=== PATIENT | male | born 1980 | race Caucasian/White ===

== ENCOUNTER 2018-02-07 12:52 | Emergency (ER) | END 2018-02-07 17:55 | disposition home or self-care (01) ==

== ENCOUNTER 2018-02-07 21:14 | Emergency (ER) | END 2018-02-08 05:37 | disposition home or self-care (01) ==

== ENCOUNTER 2018-06-13 18:12 | Emergency (ER) | payer MEDICARE, OTHER ==
[~2018-06-13] VITALS: Wt 73.0 kg
[~2018-06-13 18:12] MED LIST: HYDR-4011 PO; IBUP-1542 PO
[2018-06-13 19:16] VITALS: BP 126/81; PULSE 104; RESP 28
[2018-06-13] MEDS ORDERED: TRIMETHOPRIM/SULFAMETHOX (DS) TAB PO ONE (19:30)
[2018-06-13] MEDS ORDERED: CEPHALEXIN 500 MG CAP PO ONE (19:30)
[2018-06-13] MEDS ORDERED: IBUPROFEN 800 MG TAB PO ONE (19:30)
[2018-06-13] MEDS ORDERED: IBUP-1542 PO (19:32)
[2018-06-13] MEDS ORDERED: SULF1TAB31 PO (19:32)
[2018-06-13] MEDS ORDERED: CEPH-443 PO (19:32)
[2018-06-13] MEDS ORDERED: PHEN100C PO (19:36)
[2018-06-13] MEDS ORDERED: IBUP-1545 PO (19:36)
--- NOTE | 2018-06-13 20:07 | ERD ---
ER Documentation Chief Complaint Chief Complaint ABSCESS TO TESTICLE X3DAYS W/ DISCHARGE HPI Patient is a 37-year-old male with no medical problems who presents with "a boil to my scrotum". He has had no treatment as of yet. He said that it started 2 days ago. He said that it popped today and pus came out when he was walking. Upon review of old medical records this is the patient's 11th visit to the ER since 2007. His primary doctor is Dr. Arriaga. ROS All systems reviewed and are negative except as per history of present illness. Medications Home Meds Active Scripts Sulfamethoxazole/Trimethoprim* (Bactrim Ds* Tablet) 1 Each Tablet, 1 TAB PO BID, #14 TAB Prov:MAIKEL CERVANTES MD 06/13/18 Cephalexin* (Keflex*) 500 Mg Capsule, 500 MG PO QID for 7 Days, CAP Prov:MAIKEL CERVANTES MD 06/13/18 Ibuprofen* (Motrin*) 600 Mg Tab, 600 MG PO Q6H PRN for PAIN AND OR ELEVATED TEMP, #30 TAB Prov:MAIKEL CERVANTES MD 06/13/18 Reported Medications Phenytoin* Sodium Extended (Dilantin*) 100 Mg Capsule, 100 MG PO TID, CAP 06/13/18 Ibuprofen* (Ibuprofen*) 800 Mg Tab, 800 MG PO BID PRN for PAIN, TAB 06/13/18 Discontinued Scripts Hydrocodone/Acetaminophen ([place] 5-325 Tablet) 1 Each Tablet, 1 TAB PO Q6H PRN for SEVERE PAIN LEVEL 7-10, #20 TAB Prov:SPARKLE CEJA NP 02/21/16 Ibuprofen* (Motrin*) 600 Mg Tab, 600 MG PO Q6H PRN for PAIN AND OR ELEVATED TEMP, #30 TAB Prov:SPARKLE CEJA NP 02/21/16 Allergies Allergies: Coded Allergies: No Known Allergies (Unverified Allergy, Mild, 06/13/18) PMhx/Soc History of Surgery: Yes (L ANKLE, BRAIN) Anesthesia Reaction: No Hx Neurological Disorder: Yes (SEIZURES ) Hx Respiratory Disorders: No Hx Cardiac Disorders: No Hx Psychiatric Problems: No Hx Miscellaneous Medical Probl: No Hx Alcohol Use: Yes (YESTERDAY) Hx Substance Use: Yes (METH AND 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 Neck: Full range of motion. No meningismus. Resp: Clear to auscultation bilaterally Cardio: Regular rate and rhythm, no murmurs Abd: Soft, non tender, non distended. Normal bowel sounds Skin: 1 x 1 cm area in the base of the scrotum which was open and draining and was likely recently popped abscess Back: No midline or flank tenderness Ext: No cyanosis, or edema Neur: Awake and alert Psych: Normal Mood and Affect Results 24 hrs Current Medications Medications Dose Sig/Juan Francisco Start Time Status Last (Trade) Ordered Route PRN Stop Time Admin Dose Reason Admin Ibuprofen 800 mg ONCE ONCE 06/13/18 DC 06/13/18 (Motrin) PO 19:30 19:42 06/13/18 19:31 1 tab ONCE ONCE 06/13/18 DC 06/13/18 Trimethoprim/ PO 19:30 19:42 06/13/18 Sulfamethoxaz 19:31 ole (Bactrim (Ds)) Cephalexin 500 mg ONCE ONCE 06/13/18 DC 06/13/18 (Keflex) PO 19:30 19:42 06/13/18 19:31 Procedures/MDM Smoking Cessation Therapy: Pt. was lectured for greater than 3 minutes on the health risks of continued smoking and the benefits of cessation. Patient is a 37-year-old male who presents with an abscess which has opened up on its own in the scrotum. He has no sign of [place] gangrene at this time. The patient has an abscess which has already opened on its own and he will be given a prescription for Bactrim and Keflex. Will need to follow-up closely with his primary doctor within 24-48 hours. He can return sooner for any worsening symptoms. Departure Diagnosis: Primary Impression: Abscess Condition: Fair Patient Instructions: Abscess, Antiobiotic Treatment Only Referrals: Dr. Arriaga Additional Instructions: Call your primary care doctor TOMORROW for an appointment during the next 1-2 days.See the doctor sooner or return here if your condition worsens before your appointment time. MAIKEL CERVANTES MD Jun 13, 2018 20:07
== END 2018-06-13 19:57 | disposition home or self-care (01) ==
LOC: E/R 18:12
DX: N45.4 Abscess of epididymis or testis (principal); F17.210 Nicotine dependence, cigarettes, uncomplicated
CPT/HCPCS: 99283

== ENCOUNTER 2019-01-08 10:11 | Emergency (ER) | payer MEDICARE, OTHER ==
[~2019-01-08] VITALS: Ht 165.1 cm; Wt 81.8 kg
[~2019-01-08 10:11] MED LIST changes: +CEPH-443 PO; +CYCL10TA7 PO; -HYDR-4011 PO; +IBUP-1545 PO; +IBUP800T48 PO; +PHEN100C PO; +SULF1TAB31 PO; +TRAM50TA PO
[2019-01-08 10:20] VITALS: Ht 165.1 cm; Wt 81.8 kg
[2019-01-08] MEDS ORDERED: ONDANSETRON (ODT) 4 MG TAB ODT STA (10:40)
[2019-01-08] MEDS ORDERED: morphine 10 MG INJ IM ONE (11:00)
--- NOTE | 2019-01-08 12:02 | ERD ---
ER Documentation Chief Complaint Chief Complaint back pain x 6 days HPI This is a 38-year-old male who presents with back pain for 6 days. He states it began when he slept underneath his trailer. No injury or trauma. Pain is worse with movement. No bowel or bladder incontinence. Ambulatory. No numbness or tingling. ROS All systems reviewed and are negative except as per history of present illness. Medications Home Meds Active Scripts Tramadol Hcl* (Ultram*) 50 Mg Tablet, 50 MG PO Q6H PRN for PAIN, #20 TAB Prov:CARRIE [place] PA-C 01/08/19 Cyclobenzaprine Hcl* (Cyclobenzaprine Hcl*) 10 Mg Tablet, 10 MG PO TID, #20 TAB Prov:CARRIE [place] PA-C 01/08/19 Ibuprofen* (Motrin*) 800 Mg Tab, 800 MG PO Q6, #30 TAB Prov:CARRIE [place] PA-C 01/08/19 Sulfamethoxazole/Trimethoprim* (Bactrim Ds* Tablet) 1 Each Tablet, 1 TAB PO BID, #14 TAB Prov:MAIKEL CERVANTES MD 06/13/18 Cephalexin* (Keflex*) 500 Mg Capsule, 500 MG PO QID for 7 Days, CAP Prov:MAIKEL CERVANTES MD 06/13/18 Ibuprofen* (Motrin*) 600 Mg Tab, 600 MG PO Q6H PRN for PAIN AND OR ELEVATED TEMP, #30 TAB Prov:MAIKEL CERVANTES MD 06/13/18 Reported Medications Phenytoin* Sodium Extended (Dilantin*) 100 Mg Capsule, 100 MG PO TID, CAP 06/13/18 Ibuprofen* (Ibuprofen*) 800 Mg Tab, 800 MG PO BID PRN for PAIN, TAB 06/13/18 Allergies Allergies: Coded Allergies: No Known Allergies (Unverified Allergy, Mild, 06/13/18) PMhx/Soc History of Surgery: Yes (L ANKLE, BRAIN) Anesthesia Reaction: No Hx Neurological Disorder: Yes (SEIZURES ) Hx Respiratory Disorders: No Hx Cardiac Disorders: No Hx Psychiatric Problems: No Hx Miscellaneous Medical Probl: No Hx Alcohol Use: Yes (YESTERDAY) Hx Substance Use: Yes (METH AND MARIJUANA YESTERDAY) Hx Tobacco Use: Yes (CIGARETTES) Smoking Status: Current every day smoker FmHx Family History: No diabetes Physical Exam Vitals Vital Signs Date Temp Pulse Resp B/P (MAP) Pulse Ox O2 O2 Flow FiO2 Time Delivery Rate 01/08/19 98.6 104 24 167/88 100 10:20 (114) Physical Exam Const: No acute distress Head: Atraumatic Eyes: Normal Conjunctiva ENT: Normal External Ears, Nose and Mouth. Neck: Full range of motion. No meningismus. Resp: Clear to auscultation bilaterally Cardio: Regular rate and rhythm, no murmurs Back Exam: Skin: No bruising or rash Compartments: Soft Motor: Normal flexion and extension of bilateral hip/knee/ankle/foot Sensation: Intact to light touch throughout Bones: No midline TTP Results 24 hrs Current Medications Medications Dose Sig/Juan Francisco Start Time Status Last (Trade) Ordered Route PRN Stop Time Admin Dose Reason Admin Morphine 6 mg ONCE ONCE 01/08/19 DC 01/08/19 Sulfate IM 11:00 10:51 (morphine) 01/08/19 11:01 Ondansetron 8 mg ONCE STAT 01/08/19 DC 01/08/19 HCl (Zofran ODT 10:40 10:51 Odt) 01/08/19 10:42 Procedures/MDM Patient is here with back pain. The differential diagnosis includes but is not limited to muscle strain, ligament strain, contusion, arthritis, discogenetic disease, non-musculoskeletal, cauda equina syndrome, cord compression, abscess and others. Patient given morphine and Zofran for the pain. X-rays are nonacute. He was given copy of the results of the follow-up with primary care. He was given prescription for ibuprofen Flexeril and tramadol. Patient counseled regarding my diagnostic impression and care plan. Prior to discharge all questions answered. Pt agrees with treatment plan and understands strict return precautions. Pt is instructed to follow up with primary care provider within 24-48 hours. Precautionary instructions provided including instructions to return to the ER if not improving or for any worsening or changing symptoms or concerns. Departure Diagnosis: Primary Impression: Back pain Condition: Stable Patient Instructions: Back Pain (Acute Or Chronic) Additional Instructions: Call your primary care doctor TOMORROW for an appointment during the next 1-2 days.See the doctor sooner or return here if your condition worsens before your appointment time. CARRIE NY PA-C Jan 08, 2019 12:02
[2019-01-08 12:07] VITALS: BP 149/80; PULSE 103; RESP 18
== END 2019-01-08 12:09 | disposition home or self-care (01) ==
LOC: FTE 10:11
DX: M54.9 Dorsalgia, unspecified (principal); F17.210 Nicotine dependence, cigarettes, uncomplicated
CPT/HCPCS: 72072; 72100; 96372; 99284; J2270

== ENCOUNTER 2019-02-18 08:08 | Emergency (ER) | payer MEDICARE, OTHER ==
[~2019-02-18] VITALS: Ht 165.1 cm; Wt 90.9 kg
[2019-02-18 08:12] VITALS: Ht 165.1 cm; Wt 90.9 kg
[2019-02-18 10:46] VITALS: BP 115/71; PULSE 100; RESP 15
== END 2019-02-18 10:47 | disposition home or self-care (01) ==
LOC: E/R 08:08
DX: T40.1X1A Poisoning by heroin, accidental (unintentional), initial encounter (principal); F17.210 Nicotine dependence, cigarettes, uncomplicated
CPT/HCPCS: 80053; 80307; 85025; 99283